=== PATIENT | male | born 1990 | race African-American/Black ===

== ENCOUNTER 2016-10-04 02:52 | Inpatient (IN) | payer MEDICAID ==
[~2016-10-04] VITALS: Ht 177.8 cm; Wt 98.0 kg
[2016-10-04 04:09] VITALS: BP 132/83
[2016-10-04] MEDS ORDERED: INFLUENZA VIRUS VACCINE QVS 2016-17 (3YR+)/PF 60 MCG/0.5 ML SYRINGE IM ONE (05:45)
[2016-10-04 08:38] VITALS: BP 127/69
[2016-10-04] MEDS ORDERED: BUPR-47 PO (09:32)
[2016-10-04] MEDS ORDERED: ALPR0.5T8 PO (09:32)
[2016-10-04] MEDS ORDERED: CHLO50 PO (09:32)
[2016-10-04] MEDS ORDERED: LURA40 PO (09:32)
[2016-10-04] MEDS ORDERED: PETROLATUM,WHITE 71 GM JELLY TP PRN (09:45)
[2016-10-04] MEDS ORDERED: BENZOCAINE/MENTHOL LOZENGE MM PRN (09:45)
[2016-10-04] MEDS ORDERED: ONDANSETRON HCL 4 MG TABLET PO PRN (09:45)
[2016-10-04] MEDS ORDERED: LOPERAMIDE HCL 2 MG CAPSULE PO PRN (09:45)
[2016-10-04] MEDS ORDERED: IBUPROFEN 600 MG TABLET PO PRN (09:45)
[2016-10-04] MEDS ORDERED: CloNIDine HCL 0.1 MG TABLET PO PRN (09:45)
[2016-10-04] MEDS ORDERED: ALBUTEROL SULFATE HFA 90 MCG/PUFF 8 GM INHALER IH PRN (09:45)
[2016-10-04] MEDS ORDERED: ACETAMINOPHEN 325 MG TABLET PO PRN (09:45)
[2016-10-04] MEDS ORDERED: MAG HYDROX/AL HYDROX/SIMETH ES 30 ML SUSPENSION UDCUP PO PRN (09:45)
[2016-10-04] MEDS ORDERED: BACITRACIN 28.4 GM OINTMENT TP PRN (09:45)
[2016-10-04] MEDS ORDERED: MAGNESIUM HYDROXIDE SUSPENSION 30 ML UDCUP PO PRN (09:45)
[2016-10-04 16:03] VITALS: BP 138/87
[2016-10-04] MEDS: QUEtiapine FUMARATE 100 MG TABLET PO SCH (17:00)
[2016-10-04] MEDS: DIVALPROEX SODIUM 500 MG DR TABLET PO SCH (17:00)
[2016-10-04] MEDS: ZOLPIDEM TARTRATE 10 MG TABLET PO PRN (22:22)
[2016-10-05 07:05] VITALS: BP 124/76
[2016-10-05] MEDS: DIVALPROEX SODIUM 500 MG DR TABLET PO SCH (09:00)
[2016-10-05] MEDS: QUEtiapine FUMARATE 100 MG TABLET PO SCH (09:00)
[2016-10-05] MEDS: LORazepam 2 MG TABLET PO PRN (14:49)
[2016-10-05 16:00] VITALS: BP 126/74
[2016-10-05] MEDS: LamoTRIgine 25 MG TABLET PO SCH (17:03)
[2016-10-05] MEDS ORDERED: FluPHENAZine HCL 10 MG TABLET PO SCH (21:00)
[2016-10-05] MEDS: ZOLPIDEM TARTRATE 10 MG TABLET PO PRN (21:10)
[2016-10-06 06:32] VITALS: BP 122/68
[2016-10-06] MEDS: LORazepam 2 MG TABLET PO PRN (08:31)
[2016-10-06] MEDS: LamoTRIgine 25 MG TABLET PO SCH ×2 (08:31→17:54)
[2016-10-06 15:33] VITALS: BP 148/78
[2016-10-06 16:14] VITALS: BP 126/77
[2016-10-06] MEDS ORDERED: MAGNESIUM CITRATE 300 ML ORAL SOLUTION PO ONE (19:00)
[2016-10-06] MEDS ORDERED: FluPHENAZine HCL 5 MG TABLET PO SCH (21:00)
[2016-10-06] MEDS: ZOLPIDEM TARTRATE 10 MG TABLET PO PRN (22:16)
[2016-10-07 08:07] VITALS: BP 139/100
[2016-10-07] MEDS: LamoTRIgine 25 MG TABLET PO SCH (08:18)
[2016-10-07] MEDS ORDERED: DOCUSATE SODIUM 250 MG CAPSULE PO SCH (09:00)
[2016-10-07] MEDS ORDERED: FLUP5 PO (11:40)
[2016-10-07] MEDS ORDERED: LAMO25 PO (11:40)
[2016-10-07] MEDS ORDERED: DOCU250C91 PO (11:41)
== END 2016-10-07 12:15 | disposition home or self-care (01) | DRG 750 ==
LOC: EDSTATUS 03:29 → B3A 14:40 → 3EC 10-06 14:26
PROVIDERS: ADMIT Psychiatry & Neurology Psychiatry; ATTEND Psychiatry & Neurology Psychiatry
DX: F20.0 Paranoid schizophrenia (principal); E78.00 Pure hypercholesterolemia, unspecified; F12.90 Cannabis use, unspecified, uncomplicated; G47.00 Insomnia, unspecified; G43.909 Migraine, unspecified, not intractable, without status migrainosus; Z88.8 Allergy status to other drugs, medicaments and biological substances; Z91.018 Allergy to other foods; Z79.899 Other long term (current) drug therapy; Z90.49 Acquired absence of other specified parts of digestive tract
CPT/HCPCS: 90471

== ENCOUNTER 2018-11-26 23:46 | Inpatient (IN) | payer MEDICAID, OTHER ==
[~2018-11-26] VITALS: Ht 177.8 cm; Wt 99.0 kg
[~2018-11-26 23:46] MED LIST: DOCU250C91 PO; FLUP5 PO; LAMO25 PO
[2018-11-27] MEDS ORDERED: CHLO100T24 PO (00:01)
[2018-11-27] MEDS ORDERED: ALPR1TAB7 PO (00:01)
[2018-11-27 02:13] LABS: BASOPHILS % (AUTO) 0.8 % (0.0-2.0); EOSINOPHILS % (AUTO) 1.7 % (1.0-6.0); HEMATOCRIT 40.1 % (41-53); HEMOGLOBIN 13.4 g/dL (13.5-17.5); LYMPHOCYTES # (AUTO) 2.2 K/uL (1.0-4.8); MEAN CORPUSCULAR HGB CONC 33.4 G/dL (31.0-37.0); MEAN CORPUSCULAR VOLUME 99 fL (80-100); MONOCYTES % (AUTO) 12.1 % (2.0-9.0); NEUTROPHILS # (AUTO) 4.9 K/uL (1.8-7.7); NEUTROPHILS % (AUTO) 59.4 % (40.0-70.0); PLATELET COUNT (AUTO) 199 K/uL (150-450); RED BLOOD CELL COUNT(AUTO) 4.06 MIL/uL (4.50-5.90); RED CELL DISTRIBUTION WIDTH 12.3 % (11.5-14.5)
[2018-11-27 02:28] LABS: ANION GAP 8 mmol/L (8-16); CALCIUM, TOTAL 8.9 mg/dL (8.8-10.5); CARBON DIOXIDE 29 mmol/L (22-29); CHLORIDE 109 mmol/L (98-107); CREATININE 1.39 mg/dL (0.60-1.30); GLOMERULAR FILTR. RATE CALC > 60 mL/min (>60); GLUCOSE,RANDOM 99 mg/dL (70-110); POTASSIUM 3.7 mmol/L (3.5-5.1); SODIUM SERUM 146 mmol/L (136-145); UREA NITROGEN, BLOOD 14 mg/dL (7-18)
[2018-11-27 02:33] LABS: ALANINE AMINOTRANSFERASE 32 U/L (12-78); ALBUMIN 3.5 g/dL (3.4-5.0); ALKALINE PHOSPHATASE 43 U/L (46-116); ASPARTATE AMINOTRANSFERASE 22 U/L (15-37); BILIRUBIN,TOTAL 0.4 mg/dL (0.1-1.0); TOTAL PROTEIN, SERUM 6.3 g/dL (6.4-8.2)
[2018-11-27] MEDS ORDERED: ChlorproMAZINE HCL 25 MG TABLET PO ONE (03:00)
[2018-11-27] MEDS ORDERED: ALPRAZolam 0.25 MG TABLET PO ONE (03:00)
[2018-11-27] MEDS ORDERED: ChlorproMAZINE HCL 100 MG TABLET PO ONE (03:00)
[2018-11-27] MEDS ORDERED: ALPRAZolam 1 MG TABLET PO ONE (03:00)
[2018-11-27 03:51] LABS: AMPHET/METH SCREEN,URINE NEGATIVE (NEGATIVE); BARBITURATE SCREEN, URINE NEGATIVE (NEGATIVE); BENZODIAZEPINES SCREEN,URINE NEGATIVE (NEGATIVE); CANNABINOID SCREEN,URINE POSITIVE (NEGATIVE); COCAINE SCREEN,URINE POSITIVE (NEGATIVE); METHADONE SCREEN, URINE NEGATIVE (NEGATIVE); OPIATE SCREEN,URINE NEGATIVE (NEGATIVE)
[2018-11-27 03:55] LABS: PHENCYCLIDINE SCREEN,URINE NEGATIVE (NEGATIVE)
[2018-11-27] MEDS ORDERED: OLANZapine 5 MG RAPDIS TABLET PO PRN (04:45)
[2018-11-27 05:52] LABS: APPEARANCE,URINE CLOUDY (CLEAR); BILIRUBIN,URINE NEGATIVE (NEGATIVE); GLUCOSE, URINE (UA) NEGATIVE (NEGATIVE); KETONES,URINE NEGATIVE (NEGATIVE); LEUKOCYTE ESTERASE ,URINE NEGATIVE (NEGATIVE); NITRATE,URINE NEGATIVE (NEGATIVE); OCCULT BLOOD,URINE NEGATIVE (NEGATIVE); PH,URINE 5.5 (5.0-8.0); PROTEIN,URINE NEGATIVE (NEGATIVE); UROBILINOGEN,URINE 0.2 mg/dL (<=1.0)
[2018-11-27 06:35] LABS: CHOLESTEROL 250 mg/dL (131-200); HDL CHOLESTEROL 42 mg/dL (40-60); LDL CHOL (CALC.) 181 mg/dL (0-130); TRIGLYCERIDES 135 mg/dL (15-150)
[2018-11-27 17:44] VITALS: BP 132/89
[2018-11-27] MEDS: LORazepam 2 MG TABLET PO PRN (18:42)
[2018-11-28] MEDS ORDERED: MAGNESIUM HYDROXIDE SUSPENSION 30 ML UDCUP PO PRN (07:00)
[2018-11-28] MEDS ORDERED: ALBUTEROL SULFATE HFA 90 MCG/PUFF 8 GM INHALER IH PRN (07:00)
[2018-11-28] MEDS ORDERED: BENZOCAINE/MENTHOL LOZENGE MM PRN (07:00)
[2018-11-28] MEDS ORDERED: LOPERAMIDE HCL 2 MG CAPSULE PO PRN (07:00)
[2018-11-28] MEDS ORDERED: SUMAtriptan SUCCINATE 25 MG TABLET PO PRN (07:00)
[2018-11-28] MEDS ORDERED: MAG HYDROX/AL HYDROX/SIMETH ES 30 ML SUSPENSION UDCUP PO PRN (07:00)
[2018-11-28] MEDS ORDERED: BACITRACIN 28.4 GM OINTMENT TP PRN (07:00)
[2018-11-28] MEDS ORDERED: CloNIDine HCL 0.1 MG TABLET PO PRN (07:00)
[2018-11-28] MEDS ORDERED: PETROLATUM,WHITE 28 GM JELLY TP PRN (07:00)
[2018-11-28] MEDS ORDERED: ONDANSETRON HCL 4 MG TABLET PO PRN (07:00)
[2018-11-28] MEDS ORDERED: IBUPROFEN 600 MG TABLET PO PRN (07:00)
[2018-11-28] MEDS ORDERED: ACETAMINOPHEN 325 MG TABLET PO PRN (07:00)
[2018-11-28 08:00] VITALS: BP 125/74
[2018-11-28 08:38] VITALS: BP 125/74
[2018-11-28] MEDS: OMEGA-3/DHA/EPA/FISH OIL 1,000 MG CAPSULE PO SCH (08:48)
[2018-11-28] MEDS: LORazepam 2 MG TABLET PO PRN (08:50)
[2018-11-29] MEDS: OMEGA-3/DHA/EPA/FISH OIL 1,000 MG CAPSULE PO SCH (08:10)
[2018-11-29 08:35] VITALS: BP 146/84
[2018-11-29 11:15] LABS: ANION GAP 7 mmol/L (8-16); CALCIUM, TOTAL 9.7 mg/dL (8.8-10.5); CARBON DIOXIDE 28 mmol/L (22-29); CHLORIDE 105 mmol/L (98-107); GLOMERULAR FILTR. RATE CALC > 60 mL/min (>60); GLUCOSE,RANDOM 79 mg/dL (70-110); POTASSIUM 4.6 mmol/L (3.5-5.1); SODIUM SERUM 140 mmol/L (136-145); UREA NITROGEN, BLOOD 15 mg/dL (7-18)
[2018-11-29 16:05] VITALS: BP 141/85
[2018-11-29] MEDS: ZOLPIDEM TARTRATE 10 MG TABLET PO PRN (21:12)
[2018-11-30] MEDS: ChlorproMAZINE HCL 100 MG TABLET PO SCH (07:59)
[2018-11-30] MEDS: OMEGA-3/DHA/EPA/FISH OIL 1,000 MG CAPSULE PO SCH (07:59)
[2018-11-30] MEDS: LORazepam 2 MG TABLET PO PRN ×3 (07:59→21:35)
[2018-11-30 08:48] VITALS: BP 148/85
[2018-11-30 17:08] VITALS: BP 154/83
[2018-11-30] MEDS: ZOLPIDEM TARTRATE 10 MG TABLET PO PRN (21:35)
[2018-12-01 06:38] VITALS: BP 117/60
[2018-12-01] MEDS: OMEGA-3/DHA/EPA/FISH OIL 1,000 MG CAPSULE PO SCH (07:41)
[2018-12-01] MEDS: LORazepam 2 MG TABLET PO PRN ×2 (07:41→22:13)
[2018-12-01] MEDS: ChlorproMAZINE HCL 100 MG TABLET PO SCH ×3 (07:44→17:41)
[2018-12-01 08:00] VITALS: BP 132/72
[2018-12-01 16:19] VITALS: BP 134/80
[2018-12-01] MEDS: ZOLPIDEM TARTRATE 10 MG TABLET PO PRN (22:13)
[2018-12-02] MEDS: OMEGA-3/DHA/EPA/FISH OIL 1,000 MG CAPSULE PO SCH (10:11)
[2018-12-02] MEDS: ChlorproMAZINE HCL 100 MG TABLET PO SCH ×3 (10:12→17:35)
[2018-12-02 11:27] VITALS: BP 146/96
[2018-12-02 16:29] VITALS: BP 138/89
[2018-12-02 19:13] VITALS: BP 145/90
[2018-12-02] MEDS: ZOLPIDEM TARTRATE 10 MG TABLET PO PRN (21:23)
[2018-12-03 08:00] VITALS: BP 142/96
[2018-12-03] MEDS: OMEGA-3/DHA/EPA/FISH OIL 1,000 MG CAPSULE PO SCH (09:33)
[2018-12-03] MEDS: ChlorproMAZINE HCL 100 MG TABLET PO SCH ×2 (09:33→13:00)
[2018-12-03] MEDS ORDERED: OMEG-135 PO (11:53)
== END 2018-12-03 14:00 | disposition home or self-care (01) | DRG 750 ==
LOC: EMS 23:46 → 3EC 11-27 16:17
PROVIDERS: ADMIT Psychiatry & Neurology Child & Adolescent Psychiatry; ATTEND Psychiatry & Neurology Child & Adolescent Psychiatry
DX: F20.0 Paranoid schizophrenia (principal); E87.0 Hyperosmolality and hypernatremia; R45.851 Suicidal ideations; F12.10 Cannabis abuse, uncomplicated; G47.00 Insomnia, unspecified; G43.909 Migraine, unspecified, not intractable, without status migrainosus; F14.10 Cocaine abuse, uncomplicated; E78.00 Pure hypercholesterolemia, unspecified; F17.200 Nicotine dependence, unspecified, uncomplicated; Z71.6 Tobacco abuse counseling; Z71.51 Drug abuse counseling and surveillance of drug abuser; Z88.8 Allergy status to other drugs, medicaments and biological substances; Z91.018 Allergy to other foods
CPT/HCPCS: G0480

== ENCOUNTER 2019-09-04 02:02 | Inpatient (IN) | payer MEDICAID, OTHER ==
[~2019-09-04] VITALS: Ht 177.8 cm; Wt 107.0 kg
[~2019-09-04 02:02] MED LIST changes: +CHLO100T24 PO; -DOCU250C91 PO; -FLUP5 PO; -LAMO25 PO; +OMEG-135 PO
[2019-09-04] MEDS ORDERED: ZOLPIDEM TARTRATE 10 MG TABLET PO PRN ×2 (04:00→06:00)
[2019-09-04] MEDS ORDERED: LORazepam 2 MG TABLET PO PRN (04:00)
[2019-09-04 04:30] LABS: EOSINOPHILS % (AUTO) 3.6 % (1.0-6.0); HEMATOCRIT 39.7 % (41-53); HEMOGLOBIN 13.4 g/dL (13.5-17.5); LYMPHOCYTES # (AUTO) 2.4 K/uL (1.0-4.8); LYMPHOCYTES % (AUTO) 47.4 % (22.0-44.0); MEAN CORPUSCULAR HEMOGLOBIN 33.3 pg (26.0-34.0); MEAN CORPUSCULAR HGB CONC 33.8 G/dL (31.0-37.0); MEAN CORPUSCULAR VOLUME 99 fL (80-100); MONOCYTES # (AUTO) 0.5 K/uL (0.1-1.0); PLATELET COUNT (AUTO) 189 K/uL (150-450); RED BLOOD CELL COUNT(AUTO) 4.03 MIL/uL (4.50-5.90); RED CELL DISTRIBUTION WIDTH 12.4 % (11.5-14.5)
[2019-09-04 04:45] LABS: ANION GAP 8 mmol/L (8-16); CALCIUM, TOTAL 8.7 mg/dL (8.8-10.5); CARBON DIOXIDE 27 mmol/L (22-29); CHLORIDE 109 mmol/L (98-107); CREATININE 1.46 mg/dL (0.60-1.30); GLOMERULAR FILTR. RATE CALC > 60 mL/min (>60); GLUCOSE,RANDOM 90 mg/dL (70-110); POTASSIUM 4.3 mmol/L (3.5-5.1); SODIUM SERUM 144 mmol/L (136-145); UREA NITROGEN, BLOOD 16 mg/dL (7-18)
[2019-09-04 04:50] LABS: ALANINE AMINOTRANSFERASE 50 U/L (12-78); ALBUMIN 3.2 g/dL (3.4-5.0); ALKALINE PHOSPHATASE 50 U/L (46-116); ASPARTATE AMINOTRANSFERASE 38 U/L (15-37); BILIRUBIN,TOTAL 0.3 mg/dL (0.1-1.0)
[2019-09-04 06:10] VITALS: BP 135/85
[2019-09-04] MEDS ORDERED: INFLUENZA VIRUS VACCINE QVS 2019-20 (3YR+)/PF 60 MCG/0.5 ML SYRINGE IM ONE (07:15)
[2019-09-04 10:44] VITALS: BP 138/88
[2019-09-04] MEDS ORDERED: PETROLATUM,WHITE 28 GM JELLY TP PRN ×2 (11:15→19:00)
[2019-09-04] MEDS ORDERED: CloNIDine HCL 0.1 MG TABLET PO PRN ×2 (11:15→19:00)
[2019-09-04] MEDS ORDERED: MAG HYDROX/AL HYDROX/SIMETH ES 30 ML SUSPENSION UDCUP PO PRN ×2 (11:15→19:00)
[2019-09-04] MEDS ORDERED: MAGNESIUM HYDROXIDE SUSPENSION 30 ML UDCUP PO PRN ×2 (11:15→19:00)
[2019-09-04] MEDS ORDERED: ONDANSETRON HCL 4 MG TABLET PO PRN ×2 (11:15→19:00)
[2019-09-04] MEDS ORDERED: ACETAMINOPHEN 325 MG TABLET PO PRN ×2 (11:15→19:00)
[2019-09-04] MEDS ORDERED: NICOTINE 14 MG/24 HOUR PATCH TD PRN ×2 (11:15→19:00)
[2019-09-04] MEDS ORDERED: GuaiFENesin/D-METHORPHAN [SUGAR-FREE] 200-20MG/10 ML SYRUP UDCUP PO PRN ×2 (11:15→19:00)
[2019-09-04] MEDS ORDERED: ALBUTEROL SULFATE HFA 90 MCG/PUFF 8 GM INHALER IH PRN ×2 (11:15→19:00)
[2019-09-04] MEDS ORDERED: LOPERAMIDE HCL 2 MG CAPSULE PO PRN ×2 (11:15→19:00)
[2019-09-04] MEDS ORDERED: DOCUSATE SODIUM 100 MG CAPSULE PO PRN ×2 (11:15→19:00)
[2019-09-04] MEDS ORDERED: IBUPROFEN 400 MG TABLET PO PRN ×2 (11:15→19:00)
[2019-09-04] MEDS: LORazepam 2 MG TABLET PO PRN (13:28)
[2019-09-04 16:12] VITALS: BP 138/85
[2019-09-04] MEDS: ChlorproMAZINE HCL 50 MG TABLET PO SCH (17:47)
[2019-09-05 07:49] LABS: CHOL/HDL RATIO 6.5 (4.2-7.3)
[2019-09-05 08:27] VITALS: BP 145/91
[2019-09-05] MEDS: ChlorproMAZINE HCL 50 MG TABLET PO SCH ×2 (09:20→19:51)
[2019-09-05] MEDS: OMEGA-3/DHA/EPA/FISH OIL 1,000 MG CAPSULE PO SCH (09:20)
[2019-09-05 16:34] VITALS: BP 131/84
[2019-09-05] MEDS: LORazepam 2 MG TABLET PO PRN (21:49)
[2019-09-06 08:33] VITALS: BP 140/85
[2019-09-06] MEDS: OMEGA-3/DHA/EPA/FISH OIL 1,000 MG CAPSULE PO SCH (08:56)
[2019-09-06] MEDS: ChlorproMAZINE HCL 50 MG TABLET PO SCH ×2 (08:56→17:54)
[2019-09-06] MEDS: LORazepam 2 MG TABLET PO PRN (14:51)
[2019-09-06 16:35] VITALS: BP 127/62
[2019-09-07 08:38] VITALS: BP 135/81
[2019-09-07] MEDS ORDERED: CHLO50 PO (09:14)
== END 2019-09-07 08:50 | disposition home or self-care (01) | DRG 750 ==
LOC: EMS 02:03 → B2S 04:25
PROVIDERS: ADMIT Psychiatry & Neurology Psychiatry; ATTEND Psychiatry & Neurology Psychiatry
DX: F20.9 Schizophrenia, unspecified (principal); N17.9 Acute kidney failure, unspecified; R45.851 Suicidal ideations; Z59.0 Homelessness; R74.0 Nonspecific elevation of levels of transaminase and lactic acid dehydrogenase [LDH]; Z91.14 Patient's other noncompliance with medication regimen; F10.10 Alcohol abuse, uncomplicated; D64.9 Anemia, unspecified; F32.9 Major depressive disorder, single episode, unspecified; K59.00 Constipation, unspecified; Z28.21 Immunization not carried out because of patient refusal
CPT/HCPCS: G0480

== ENCOUNTER 2019-12-26 19:46 | Inpatient (IN) | payer MEDICAID, OTHER ==
[~2019-12-26] VITALS: Ht 177.8 cm; Wt 108.5 kg
[~2019-12-26 19:46] MED LIST changes: -CHLO100T24 PO; +CHLO50 PO; -OMEG-135 PO
[2019-12-26] MEDS ORDERED: PERTUSS(ACELL),DIPH,TET VAC/PF 0.5 ML VIAL IM ONE (22:30)
[2019-12-26 22:53] LABS: AMPHET/METH SCREEN,URINE NEGATIVE (NEGATIVE); BARBITURATE SCREEN, URINE NEGATIVE (NEGATIVE); BENZODIAZEPINES SCREEN,URINE NEGATIVE (NEGATIVE); CANNABINOID SCREEN,URINE POSITIVE (NEGATIVE); COCAINE SCREEN,URINE POSITIVE (NEGATIVE); METHADONE SCREEN, URINE NEGATIVE (NEGATIVE)
[2019-12-26 23:05] LABS: OPIATE SCREEN,URINE NEGATIVE (NEGATIVE)
[2019-12-26 23:08] LABS: BASOPHILS % (AUTO) 1.1 % (0.0-2.0); EOSINOPHILS % (AUTO) 2.3 % (1.0-6.0); HEMATOCRIT 42.8 % (41-53); LYMPHOCYTES # (AUTO) 2.8 K/uL (1.0-4.8); LYMPHOCYTES % (AUTO) 36.9 % (22.0-44.0); MEAN CORPUSCULAR HEMOGLOBIN 32.8 pg (26.0-34.0); MEAN CORPUSCULAR HGB CONC 32.6 G/dL (31.0-37.0); MEAN CORPUSCULAR VOLUME 100 fL (80-100); MONOCYTES # (AUTO) 0.9 K/uL (0.1-1.0); MONOCYTES % (AUTO) 12.6 % (2.0-9.0); NEUTROPHILS # (AUTO) 3.5 K/uL (1.8-7.7); NEUTROPHILS % (AUTO) 47.1 % (40.0-70.0); PLATELET COUNT (AUTO) 231 K/uL (150-450); RED BLOOD CELL COUNT(AUTO) 4.26 MIL/uL (4.50-5.90); RED CELL DISTRIBUTION WIDTH 12.7 % (11.5-14.5)
[2019-12-26 23:22] LABS: ANION GAP 10 mmol/L (8-16); CARBON DIOXIDE 27 mmol/L (22-29); CHLORIDE 104 mmol/L (98-107); CREATININE 1.25 mg/dL (0.60-1.30); GLOMERULAR FILTR. RATE CALC > 60 mL/min (>60); GLUCOSE,RANDOM 103 mg/dL (70-110); POTASSIUM 3.6 mmol/L (3.5-5.1); SODIUM SERUM 141 mmol/L (136-145); UREA NITROGEN, BLOOD 15 mg/dL (7-18)
[2019-12-26 23:28] LABS: ALANINE AMINOTRANSFERASE 35 U/L (12-78); ALBUMIN 3.9 g/dL (3.4-5.0); ALKALINE PHOSPHATASE 48 U/L (46-116); ASPARTATE AMINOTRANSFERASE 22 U/L (15-37); BILIRUBIN,TOTAL 0.5 mg/dL (0.1-1.0)
[2019-12-26 23:36] LABS: PHENCYCLIDINE SCREEN,URINE NEGATIVE (NEGATIVE)
[2019-12-27] MEDS ORDERED: LORazepam 2 MG TABLET PO PRN (00:45)
[2019-12-27] MEDS: ZOLPIDEM TARTRATE 10 MG TABLET PO PRN (01:17)
[2019-12-27 04:56] VITALS: BP 126/80
[2019-12-27 08:23] VITALS: BP 142/84
[2019-12-27] MEDS ORDERED: DOCUSATE SODIUM 100 MG CAPSULE PO PRN (10:15)
[2019-12-27] MEDS ORDERED: ONDANSETRON HCL 4 MG TABLET PO PRN (10:15)
[2019-12-27] MEDS ORDERED: ACETAMINOPHEN 325 MG TABLET PO PRN (10:15)
[2019-12-27] MEDS ORDERED: NICOTINE 14 MG/24 HOUR PATCH TD PRN (10:15)
[2019-12-27] MEDS ORDERED: CloNIDine HCL 0.1 MG TABLET PO PRN (10:15)
[2019-12-27] MEDS ORDERED: GuaiFENesin/D-METHORPHAN [SUGAR-FREE] 200-20MG/10 ML SYRUP UDCUP PO PRN (10:15)
[2019-12-27] MEDS ORDERED: LOPERAMIDE HCL 2 MG CAPSULE PO PRN (10:15)
[2019-12-27] MEDS ORDERED: MAG HYDROX/AL HYDROX/SIMETH ES 30 ML SUSPENSION UDCUP PO PRN (10:15)
[2019-12-27] MEDS ORDERED: ALBUTEROL SULFATE HFA 90 MCG/PUFF 8 GM INHALER IH PRN (10:15)
[2019-12-27] MEDS ORDERED: MAGNESIUM HYDROXIDE SUSPENSION 30 ML UDCUP PO PRN (10:15)
[2019-12-27] MEDS ORDERED: PETROLATUM,WHITE 28 GM JELLY TP PRN (10:15)
[2019-12-27] MEDS ORDERED: IBUPROFEN 400 MG TABLET PO PRN (10:15)
[2019-12-27] MEDS: ChlorproMAZINE HCL 50 MG TABLET PO SCH ×2 (12:34→16:06)
[2019-12-27 16:36] VITALS: BP 130/80
[2019-12-27] MEDS: ALPRAZolam 1 MG TABLET PO PRN (18:25)
[2019-12-28 00:12] VITALS: BP 132/68
[2019-12-28] MEDS: ALPRAZolam 1 MG TABLET PO PRN ×2 (00:27→16:54)
[2019-12-28] MEDS ORDERED: DiphenhydrAMINE HCL 50 MG/ML VIAL ONE ×2 (00:54→01:02)
[2019-12-28] MEDS ORDERED: LORazepam 2 MG/ML VIAL ONE (00:55)
[2019-12-28] MEDS ORDERED: HALOPERIDOL LACTATE 5 MG/ML VIAL ONE (00:55)
[2019-12-28] MEDS ORDERED: ChlorproMAZINE HCL 25 MG/ML 2 ML AMP ONE (00:59)
[2019-12-28] MEDS: ZOLPIDEM TARTRATE 10 MG TABLET PO PRN (01:11)
[2019-12-28] MEDS ORDERED: LORazepam 2 MG/ML VIAL IM ONE ×2 (01:45→11:45)
[2019-12-28] MEDS ORDERED: DiphenhydrAMINE HCL 50 MG/ML VIAL IM ONE ×2 (01:45→11:45)
[2019-12-28] MEDS ORDERED: DiphenhydrAMINE HCL 50 MG/ML VIAL IVP ONE (01:45)
[2019-12-28] MEDS ORDERED: HALOPERIDOL LACTATE 5 MG/ML VIAL IM ONE (01:45)
[2019-12-28] MEDS ORDERED: ChlorproMAZINE HCL 25 MG/ML 2 ML AMP IM ONE ×2 (01:45→11:45)
[2019-12-28 08:34] VITALS: BP 115/61
[2019-12-28] MEDS: ChlorproMAZINE HCL 50 MG TABLET PO SCH ×3 (09:42→16:54)
[2019-12-28 16:16] VITALS: BP 100/58
[2019-12-29] MEDS: ALPRAZolam 1 MG TABLET PO PRN ×2 (05:07→16:43)
[2019-12-29 05:23] VITALS: BP 134/93
[2019-12-29] MEDS: ChlorproMAZINE HCL 50 MG TABLET PO SCH ×3 (09:00→16:43)
[2019-12-29 16:17] VITALS: BP 136/84
[2019-12-29] MEDS: ZOLPIDEM TARTRATE 10 MG TABLET PO PRN (21:27)
[2019-12-30 08:23] VITALS: BP 136/77
[2019-12-30] MEDS: ChlorproMAZINE HCL 50 MG TABLET PO SCH (08:38)
[2019-12-30] MEDS: ALPRAZolam 1 MG TABLET PO PRN (11:13)
[2019-12-30] MEDS: ChlorproMAZINE HCL 100 MG TABLET PO SCH ×2 (13:07→16:57)
[2019-12-30] MEDS ORDERED: DiphenhydrAMINE HCL 50 MG/ML VIAL IM ONE (14:00)
[2019-12-30] MEDS ORDERED: LORazepam 2 MG/ML VIAL IM ONE (14:00)
[2019-12-30] MEDS ORDERED: FluPHENAZine HCL 2.5 MG/ML INJ IM ONE ×2 (14:00→14:01)
[2019-12-30] MEDS ORDERED: HALOPERIDOL LACTATE 5 MG/ML VIAL IM ONE (14:00)
[2019-12-31 01:15] VITALS: BP 122/78
[2019-12-31] MEDS: ChlorproMAZINE HCL 100 MG TABLET PO SCH ×4 (09:00→16:40)
[2019-12-31] MEDS: ZOLPIDEM TARTRATE 10 MG TABLET PO PRN (21:34)
[2020-01-01 06:08] VITALS: BP 113/68
[2020-01-01] MEDS: ChlorproMAZINE HCL 100 MG TABLET PO SCH ×3 (09:11→16:42)
[2020-01-01] MEDS: ALPRAZolam 1 MG TABLET PO PRN ×2 (12:22→18:34)
[2020-01-02 01:59] VITALS: BP 124/84
[2020-01-02 08:18] VITALS: BP 123/74
[2020-01-02] MEDS: ChlorproMAZINE HCL 100 MG TABLET PO SCH (08:32)
[2020-01-02] MEDS: ALPRAZolam 1 MG TABLET PO PRN (08:32)
[2020-01-02] MEDS ORDERED: CHLO100T24 PO (11:06)
== END 2020-01-02 12:10 | disposition home or self-care (01) | DRG 750 ==
LOC: EMS 20:01 → B3A 12-27 02:29 → B2S 12-27 03:48 → B3A 12-28 11:50
PROVIDERS: ADMIT Psychiatry & Neurology Child & Adolescent Psychiatry; ATTEND Psychiatry & Neurology Child & Adolescent Psychiatry
DX: F20.0 Paranoid schizophrenia (principal); R45.851 Suicidal ideations; Z59.0 Homelessness; F12.10 Cannabis abuse, uncomplicated; F14.10 Cocaine abuse, uncomplicated; Z88.8 Allergy status to other drugs, medicaments and biological substances; F10.10 Alcohol abuse, uncomplicated; F19.10 Other psychoactive substance abuse, uncomplicated; Y90.9 Presence of alcohol in blood, level not specified; R03.0 Elevated blood-pressure reading, without diagnosis of hypertension; F41.9 Anxiety disorder, unspecified; S61.412A Laceration without foreign body of left hand, initial encounter; X78.8XXA Intentional self-harm by other sharp object, initial encounter; Y93.89 Activity, other specified; Y92.89 Other specified places as the place of occurrence of the external cause; Y99.8 Other external cause status
CPT/HCPCS: 90715; G0480; J1200; J1630; J2060; J3230; J3490

== ENCOUNTER 2020-05-06 19:20 | Inpatient (IN) | payer MEDICAID, OTHER ==
[~2020-05-06] VITALS: Ht 177.8 cm; Wt 97.7 kg
[~2020-05-06 19:20] MED LIST changes: +CHLO100T31 PO; -CHLO50 PO
[2020-05-06] MEDS ORDERED: ALPR0.5T8 PO (19:37)
[2020-05-06] MEDS ORDERED: CHLO100T31 PO (19:37)
[2020-05-06] MEDS ORDERED: ALPR1TAB7 PO (19:39)
[2020-05-06] MEDS ORDERED: DiphenhydrAMINE HCL 50 MG/ML VIAL IM ONE (21:00)
[2020-05-06] MEDS ORDERED: LORazepam 2 MG/ML VIAL IM ONE (21:00)
[2020-05-06] MEDS ORDERED: ZIPRASIDONE MESYLATE 20 MG/VIAL IM ONE (21:00)
[2020-05-06 21:41] LABS: BASOPHILS % (AUTO) 0.6 % (0.0-2.0); EOSINOPHILS % (AUTO) 5.3 % (1.0-6.0); HEMATOCRIT 43.2 % (41-53); HEMOGLOBIN 14.6 g/dL (13.5-17.5); LYMPHOCYTES # (AUTO) 3.5 K/uL (1.0-4.8); LYMPHOCYTES % (AUTO) 40.5 % (22.0-44.0); MEAN CORPUSCULAR HEMOGLOBIN 34.2 pg (26.0-34.0); MEAN CORPUSCULAR HGB CONC 33.7 G/dL (31.0-37.0); MEAN CORPUSCULAR VOLUME 102 fL (80-100); MONOCYTES % (AUTO) 12.1 % (2.0-9.0); NEUTROPHILS # (AUTO) 3.6 K/uL (1.8-7.7); NEUTROPHILS % (AUTO) 41.5 % (40.0-70.0); PLATELET COUNT (AUTO) 207 K/uL (150-450); RED BLOOD CELL COUNT(AUTO) 4.26 MIL/uL (4.50-5.90); RED CELL DISTRIBUTION WIDTH 12.9 % (11.5-14.5)
[2020-05-06 21:52] LABS: ANION GAP 19 mmol/L (8-16); CALCIUM, TOTAL 9.6 mg/dL (8.8-10.5); CARBON DIOXIDE 19 mmol/L (22-29); CHLORIDE 105 mmol/L (98-107); CREATININE 1.99 mg/dL (0.60-1.30); GLOMERULAR FILTR. RATE CALC 48 mL/min (>60); GLUCOSE,RANDOM 89 mg/dL (70-110); POTASSIUM 3.9 mmol/L (3.5-5.1); SODIUM SERUM 143 mmol/L (136-145); UREA NITROGEN, BLOOD 18 mg/dL (7-18)
[2020-05-06 22:01] LABS: ALANINE AMINOTRANSFERASE 42 U/L (12-78); ALBUMIN 4.1 g/dL (3.4-5.0); ALKALINE PHOSPHATASE 58 U/L (46-116); ASPARTATE AMINOTRANSFERASE 33 U/L (15-37); BILIRUBIN,TOTAL 0.5 mg/dL (0.1-1.0); TOTAL PROTEIN, SERUM 7.4 g/dL (6.4-8.2)
[2020-05-06 22:21] LABS: COVID AG,FIA SOURCE NASOPHARYNGEAL
[2020-05-06] MEDS ORDERED: OLANZapine 5 MG RAPDIS TABLET PO PRN (23:00)
[2020-05-07 03:28] LABS: CHOL/HDL RATIO 5.6 (4.2-7.3); CHOLESTEROL 287 mg/dL (131-200); HDL CHOLESTEROL 51 mg/dL (40-60); TRIGLYCERIDES 70 mg/dL (15-150)
[2020-05-07 03:29] LABS: LDL CHOL (CALC.) 222 mg/dL (0-130)
[2020-05-07 07:18] LABS: AMPHET/METH SCREEN,URINE NEGATIVE (NEGATIVE); BARBITURATE SCREEN, URINE NEGATIVE (NEGATIVE); BENZODIAZEPINES SCREEN,URINE NEGATIVE (NEGATIVE); CANNABINOID SCREEN,URINE POSITIVE (NEGATIVE); COCAINE SCREEN,URINE POSITIVE (NEGATIVE); METHADONE SCREEN, URINE NEGATIVE (NEGATIVE); OPIATE SCREEN,URINE NEGATIVE (NEGATIVE)
[2020-05-07 07:20] LABS: PHENCYCLIDINE SCREEN,URINE NEGATIVE (NEGATIVE)
[2020-05-07 07:37] LABS: APPEARANCE,URINE CLEAR (CLEAR); BILIRUBIN,URINE NEGATIVE (NEGATIVE); GLUCOSE, URINE (UA) NEGATIVE (NEGATIVE); KETONES,URINE NEGATIVE (NEGATIVE); LEUKOCYTE ESTERASE ,URINE NEGATIVE (NEGATIVE); NITRATE,URINE NEGATIVE (NEGATIVE); OCCULT BLOOD,URINE NEGATIVE (NEGATIVE); PH,URINE 5.5 (5.0-8.0); PROTEIN,URINE NEGATIVE (NEGATIVE)
[2020-05-07] MEDS ORDERED: ONDANSETRON HCL 4 MG TABLET PO PRN (07:45)
[2020-05-07] MEDS ORDERED: MAG HYDROX/AL HYDROX/SIMETH ES 30 ML SUSPENSION UDCUP PO PRN (07:45)
[2020-05-07] MEDS ORDERED: MAGNESIUM HYDROXIDE SUSPENSION 30 ML UDCUP PO PRN (07:45)
[2020-05-07] MEDS ORDERED: LOPERAMIDE HCL 2 MG CAPSULE PO PRN (07:45)
[2020-05-07] MEDS ORDERED: GuaiFENesin/D-METHORPHAN [SUGAR-FREE] 200-20MG/10 ML SYRUP UDCUP PO PRN (07:45)
[2020-05-07] MEDS ORDERED: IBUPROFEN 400 MG TABLET PO PRN (07:45)
[2020-05-07] MEDS ORDERED: NICOTINE 14 MG/24 HOUR PATCH TD PRN (07:45)
[2020-05-07] MEDS ORDERED: DOCUSATE SODIUM 100 MG CAPSULE PO PRN (07:45)
[2020-05-07] MEDS ORDERED: CloNIDine HCL 0.1 MG TABLET PO PRN (07:45)
[2020-05-07] MEDS ORDERED: ALBUTEROL SULFATE HFA 90 MCG/PUFF 8 GM INHALER IH PRN (07:45)
[2020-05-07] MEDS ORDERED: ACETAMINOPHEN 325 MG TABLET PO PRN (07:45)
[2020-05-07] MEDS ORDERED: PETROLATUM,WHITE 28 GM JELLY TP PRN (07:45)
[2020-05-07] MEDS ORDERED: PALI6TAB15 PO (17:41)
[2020-05-07] MEDS: ZOLPIDEM TARTRATE 10 MG TABLET PO PRN (19:29)
[2020-05-07] MEDS: LORazepam 2 MG TABLET PO PRN (19:29)
[2020-05-08 00:38] VITALS: BP 108/66
[2020-05-08] MEDS: ChlorproMAZINE HCL 50 MG TABLET PO SCH ×2 (07:30→08:50)
[2020-05-08 08:00] VITALS: BP 143/89
[2020-05-08] MEDS: LORazepam 2 MG TABLET PO PRN (09:58)
[2020-05-08] MEDS ORDERED: LORazepam 2 MG/ML VIAL ONE (15:51)
[2020-05-08] MEDS ORDERED: HALOPERIDOL LACTATE 5 MG/ML VIAL ONE (15:51)
[2020-05-08] MEDS ORDERED: DiphenhydrAMINE HCL 50 MG/ML VIAL ONE (15:52)
[2020-05-08] MEDS ORDERED: HALOPERIDOL LACTATE 5 MG/ML VIAL IM ONE (16:00)
[2020-05-08] MEDS ORDERED: ChlorproMAZINE HCL 50 MG/2 ML AMP IM ONE (16:00)
[2020-05-08] MEDS ORDERED: DiphenhydrAMINE HCL 50 MG/ML VIAL IM ONE (16:00)
[2020-05-08] MEDS ORDERED: LORazepam 2 MG/ML VIAL IM ONE (16:00)
[2020-05-08] MEDS ORDERED: ChlorproMAZINE HCL 50 MG/2 ML AMP ONE (16:03)
[2020-05-08] MEDS: GABAPENTIN 300 MG CAPSULE PO SCH (17:00)
[2020-05-08 17:05] VITALS: BP 134/73
[2020-05-08] MEDS: PALIPERIDONE 6 MG ER TABLET PO SCH (21:00)
[2020-05-09 08:00] VITALS: BP 128/72
[2020-05-09] MEDS: GABAPENTIN 300 MG CAPSULE PO SCH ×2 (08:11→16:29)
[2020-05-09] MEDS: LORazepam 2 MG TABLET PO PRN ×3 (08:11→17:25)
[2020-05-09 16:43] VITALS: BP 145/90
[2020-05-09] MEDS: ZOLPIDEM TARTRATE 10 MG TABLET PO PRN (20:01)
[2020-05-09] MEDS: PALIPERIDONE 6 MG ER TABLET PO SCH (20:01)
[2020-05-10] MEDS: GABAPENTIN 300 MG CAPSULE PO SCH (08:31)
[2020-05-10 09:45] VITALS: BP 148/88
[2020-05-10] MEDS ORDERED: GABA-1181 PO (09:57)
== END 2020-05-10 10:45 | disposition home or self-care (01) | DRG 750 ==
LOC: EMS 19:20 → 3EC 22:51 → UNDOADMIN 22:51 → 3EC 05-07
PROVIDERS: ADMIT Psychiatry & Neurology Psychiatry; ATTEND Psychiatry & Neurology Psychiatry
DX: F20.0 Paranoid schizophrenia (principal); F12.90 Cannabis use, unspecified, uncomplicated; F32.9 Major depressive disorder, single episode, unspecified; E78.5 Hyperlipidemia, unspecified; F19.10 Other psychoactive substance abuse, uncomplicated; Z88.8 Allergy status to other drugs, medicaments and biological substances; Z91.14 Patient's other noncompliance with medication regimen; Z20.828 Contact with and (suspected) exposure to other viral communicable diseases
CPT/HCPCS: 87426; 96372; 99291; G0480; J1200; J1630; J2060; J3230; J3486